=== PATIENT | female | born 1975 | race Two or more races ===

== ENCOUNTER 2022-12-04 15:03 | Inpatient (IN) | payer OTHER ==
[~2022-12-04] VITALS: Ht 165.1 cm; Wt 105.4 kg
[2022-12-04] MEDS ORDERED: PANTOPRAZOLE 40 MG/10 ML VIAL INJ IV ONE (15:30)
[2022-12-04] MEDS ORDERED: PROCHLORPERAZINE EDISYLATE 5 MG/ML 2ML VIAL IV ONE (15:30)
[2022-12-04] MEDS ORDERED: MORPHINE SULFATE 4 MG/ML SYR/VIAL IV ONE (15:30)
[2022-12-04 15:36] LABS: Urine Bacteria FEW /hpf (None Seen); Urine Blood 1+ /uL (Negative); Urine Mucus FEW (None Seen); Urine Specific Gravity 1.025 (1.001-1.035); Urine WBC 20 /hpf (0 - 5)
[2022-12-04 15:42] LABS: Basophils # (auto) 0.1 10 ^3/uL (0-0.2); Basophils % (auto) 0.7 % (0.0-2.0); Eosinophils # (auto) 0 10 ^3/uL (0-0.8); Hematocrit 44.7 % (36.0-46.0); Hemoglobin 14.9 g/dL (12.2-16.2); Lymphocytes # (auto) 1.6 10 ^3/uL (0.4-5.4); Lymphocytes % (auto) 9.2 % (10.0-50.0); Mean Corpuscular Hemoglobin 27.8 pg (28.0-32.0); Mean Corpuscular Hgb Conc. 33.3 g/dL (32.0-36.0); Mean Corpuscular Volume 83.6 fL (80.0-100.0); Monocytes # (auto) 1.4 10 ^3/uL (0-1.3); Monocytes % (auto) 8.2 % (0.0-12.0); Neutrophils # (auto) 13.9 10 ^3/uL (1.6-8.6); Neutrophils % (auto) 81.9 % (37.0-80.0); Nucleated Red Blood Cells % 0.1 %; Red Blood Cells 5.35 10^6/uL (4.0-5.20); Red Cell Distribution Width 15.4 % (11.8-14.3)
[2022-12-04 16:04] LABS: Potassium 3.7 mmol/L (3.5-5.1)
[2022-12-04 16:11] LABS: Albumin 3.8 g/dL (3.4-5.0); BUN/Creatinine Ratio 12.7 (10.0-20.0); Bilirubin, Total 0.7 mg/dL (0.2-1.0); Calcium 9.6 mg/dL (8.5-10.1); Total Protein 8.6 g/dL (6.4-8.2)
[2022-12-04] MEDS ORDERED: PIPERACILLIN-TAZOB 3.375GM 100 ML IV ONE (17:30)
[2022-12-04] MEDS ORDERED: MORPHINE SULFATE INJ 2 MG/ml SYRG IV PRN (22:45)
[2022-12-04] MEDS ORDERED: NITROGLYCERIN 0.4 MG SL TAB SL PRN (22:45)
[2022-12-04 23:45] VITALS: PULSE 110; RESP 16; O2SAT 95
[2022-12-05] MEDS: PIPERACILLIN-TAZOB 3.375GM 100 ML IV SCH ×4 (00:12→18:00)
[2022-12-05] MEDS: ONDANSETRON HCL 4 MG/2 ML VIAL IV PRN ×3 (00:12→17:04)
[2022-12-05] MEDS: SODIUM CHLORIDE 0.9% 1,000 ML IV SCH ×4 (00:13→23:45)
[2022-12-05] MEDS: MORPHINE SULFATE INJ 2 MG/ml SYRG IV PRN ×3 (00:21→17:09)
[2022-12-05 05:50] VITALS: PULSE 91; RESP 20; O2SAT 95
[2022-12-05 07:01] LABS: Basophils # (auto) 0 10 ^3/uL (0-0.2); Basophils % (auto) 0.2 % (0.0-2.0); Eosinophils # (auto) 0 10 ^3/uL (0-0.8); Hematocrit 40.7 % (36.0-46.0); Hemoglobin 13.7 g/dL (12.2-16.2); Lymphocytes # (auto) 1.3 10 ^3/uL (0.4-5.4); Lymphocytes % (auto) 6.9 % (10.0-50.0); Mean Corpuscular Hemoglobin 28.8 pg (28.0-32.0); Mean Corpuscular Hgb Conc. 33.8 g/dL (32.0-36.0); Mean Corpuscular Volume 85.3 fL (80.0-100.0); Monocytes # (auto) 2.2 10 ^3/uL (0-1.3); Monocytes % (auto) 11.3 % (0.0-12.0); Neutrophils # (auto) 15.9 10 ^3/uL (1.6-8.6); Neutrophils % (auto) 81.6 % (37.0-80.0); Nucleated Red Blood Cells % 0.1 %; Red Blood Cells 4.77 10^6/uL (4.0-5.20); Red Cell Distribution Width 15.5 % (11.8-14.3); White Blood Cell 19.4 10^3/uL (4.4-10.8)
[2022-12-05 07:12] LABS: Calcium 8.8 mg/dL (8.5-10.1); Potassium 4.4 mmol/L (3.5-5.1)
[2022-12-05 07:18] LABS: Albumin 3.4 g/dL (3.4-5.0); Bilirubin, Total 1.3 mg/dL (0.2-1.0)
[2022-12-05 08:55] VITALS: PULSE 97; RESP 16; O2SAT 96
[2022-12-05] MEDS: PANTOPRAZOLE 40 MG/10 ML VIAL INJ IV SCH (11:20)
[2022-12-05] MEDS: HEPARIN SODIUM (PORCINE) 5000 UNITS/ML 1ML VIAL SC SCH (23:38)
[2022-12-06] VITALS (8 sets, daily range): BP systolic 100–113; BP diastolic 63–71; PULSE 71–103; RESP 15–18; TEMP 98.2–100.2; O2SAT 90–98
[2022-12-06] MEDS: PIPERACILLIN-TAZOB 3.375GM 100 ML IV SCH ×3 (01:16→18:04)
[2022-12-06] MEDS: ACETAMINOPHEN 325 MG TAB PO PRN (01:24)
[2022-12-06] MEDS: ONDANSETRON HCL 4 MG/2 ML VIAL IV PRN (07:36)
[2022-12-06] MEDS: MORPHINE SULFATE INJ 2 MG/ml SYRG IV PRN ×2 (07:37→17:54)
[2022-12-06] MEDS: SODIUM CHLORIDE 0.9% 1,000 ML IV SCH ×2 (08:13→18:07)
[2022-12-06 09:12] LABS: INR 1.09 (0.9-1.15); Partial Thromboplastin Time 33.7 SEC (24.5-34.5)
[2022-12-06] MEDS: HEPARIN SODIUM (PORCINE) 5000 UNITS/ML 1ML VIAL SC SCH ×2 (10:07→21:25)
[2022-12-06] MEDS: PANTOPRAZOLE 40 MG/10 ML VIAL INJ IV SCH (10:07)
[2022-12-06] MEDS ORDERED: GLYCOPYRROLATE 0.2 MG/ML 1ML VIAL ONE ×2 (10:25→14:19)
[2022-12-06] MEDS ORDERED: ONDANSETRON HCL 4 MG/2 ML VIAL ONE (10:25)
[2022-12-06] MEDS ORDERED: KETOROLAC TROMETH 30 MG/ML 1ML VIAL ONE (10:25)
[2022-12-06] MEDS ORDERED: LIDOCAINE 2% (LOCAL ANESTH.) PF 5ml SDV ONE (10:25)
[2022-12-06] MEDS ORDERED: DexAMETHasone SOD PHOS 10MG/1ML VIAL INJ ONE (10:25)
[2022-12-06] MEDS ORDERED: BUPIVACAINE 0.25% INJ 50ML VIAL ONE (11:56)
[2022-12-06] MEDS ORDERED: LIDOCAINE W/ EPINEPHRINE 2% INJ 20ML VIAL ONE (11:56)
[2022-12-06] MEDS ORDERED: fentaNYL CITRATE 100 MCG/2 ML VL ONE (12:39)
[2022-12-06] MEDS ORDERED: MIDAZOLAM HCL 2MG/2ML 2ml VIAL (1mg/ml) ONE (12:39)
[2022-12-06] MEDS ORDERED: ROCURONIUM 10MG/ML 10ML VIAL IV ONE (13:53)
[2022-12-06] MEDS ORDERED: PROPOFOL 10 MG/ML 20 ML IV ONE (13:53)
[2022-12-06] MEDS ORDERED: ONDANSETRON HCL 4 MG/2 ML VIAL IV PRN (14:00)
[2022-12-06] MEDS ORDERED: HYDROmorphone HCL 2 MG/ML VL/or syr IV PRN ×2 (14:00)
[2022-12-06] MEDS ORDERED: NEOSTIGMINE 1 MG/ML INJ (10mg/10ML VIAL) ONE (14:19)
[2022-12-06] MEDS ORDERED: FAMO-12 PO (17:10)
[2022-12-06] MEDS ORDERED: CHOL1CAP21 PO (17:10)
[2022-12-07] VITALS (7 sets, daily range): BP systolic 101–133; BP diastolic 61–83; PULSE 80–96; RESP 17–20; TEMP 98.5–99.1; O2SAT 90–98
[2022-12-07] MEDS: PIPERACILLIN-TAZOB 3.375GM 100 ML IV SCH ×3 (00:57→18:00)
[2022-12-07] MEDS: MORPHINE SULFATE INJ 2 MG/ml SYRG IV PRN ×4 (02:04→20:26)
[2022-12-07] MEDS: ONDANSETRON HCL 4 MG/2 ML VIAL IV PRN ×4 (02:13→20:25)
[2022-12-07 05:30] LABS: Basophils # (auto) 0.1 10 ^3/uL (0-0.2); Basophils % (auto) 0.6 % (0.0-2.0); Eosinophils # (auto) 0.1 10 ^3/uL (0-0.8); Eosinophils % (auto) 0.5 % (0.0-7.0); Hematocrit 32.6 % (36.0-46.0); Lymphocytes # (auto) 1.8 10 ^3/uL (0.4-5.4); Lymphocytes % (auto) 16.7 % (10.0-50.0); Mean Corpuscular Hemoglobin 28.4 pg (28.0-32.0); Mean Corpuscular Hgb Conc. 33.6 g/dL (32.0-36.0); Mean Corpuscular Volume 84.5 fL (80.0-100.0); Monocytes # (auto) 0.9 10 ^3/uL (0-1.3); Monocytes % (auto) 8.7 % (0.0-12.0); Neutrophils # (auto) 7.9 10 ^3/uL (1.6-8.6); Neutrophils % (auto) 73.5 % (37.0-80.0); Nucleated Red Blood Cells % 0.1 %; Red Blood Cells 3.86 10^6/uL (4.0-5.20); Red Cell Distribution Width 15.5 % (11.8-14.3); White Blood Cell 10.8 10^3/uL (4.4-10.8)
[2022-12-07] MEDS: SODIUM CHLORIDE 0.9% 1,000 ML IV SCH ×2 (09:05→18:00)
[2022-12-07 09:16] LABS: BUN/Creatinine Ratio 8.3 (10.0-20.0); Calcium 7.8 mg/dL (8.5-10.1); Potassium 3.7 mmol/L (3.5-5.1)
[2022-12-07] MEDS: PSYLLIUM PWD 5.8GM PKG PO SCH ×2 (09:22→20:54)
[2022-12-07] MEDS: PANTOPRAZOLE 40 MG/10 ML VIAL INJ IV SCH (09:22)
[2022-12-07] MEDS: HEPARIN SODIUM (PORCINE) 5000 UNITS/ML 1ML VIAL SC SCH ×2 (10:00→20:54)
[2022-12-08] MEDS: SODIUM CHLORIDE 0.9% 1,000 ML IV SCH ×3 (03:57→18:40)
[2022-12-08] MEDS: PIPERACILLIN-TAZOB 3.375GM 100 ML IV SCH ×3 (03:57→17:42)
[2022-12-08 05:00] VITALS: BP 116/74; PULSE 93; RESP 17; TEMP 98.9; O2SAT 95
[2022-12-08 07:30] VITALS: PULSE 87; RESP 18; O2SAT 97
[2022-12-08] MEDS: ONDANSETRON HCL 4 MG/2 ML VIAL IV PRN ×2 (08:16→21:17)
[2022-12-08] MEDS: MORPHINE SULFATE INJ 2 MG/ml SYRG IV PRN ×2 (08:17→21:17)
[2022-12-08 08:36] VITALS: BP 112/66; PULSE 81; RESP 17; TEMP 98.8; O2SAT 96
[2022-12-08] MEDS: PSYLLIUM PWD 5.8GM PKG PO SCH ×2 (09:42→21:17)
[2022-12-08] MEDS: PANTOPRAZOLE 40 MG/10 ML VIAL INJ IV SCH (09:42)
[2022-12-08] MEDS ORDERED: POLYETHYLENE GLYCOL 17 GM PWDR PO ONE (09:45)
[2022-12-08] MEDS: HEPARIN SODIUM (PORCINE) 5000 UNITS/ML 1ML VIAL SC SCH ×2 (09:52→21:18)
[2022-12-08] MEDS: DOCUSATE SOD 100 MG CAP PO SCH ×2 (10:00→21:17)
[2022-12-08 12:50] VITALS: BP 107/72; PULSE 88; RESP 18; TEMP 99; O2SAT 97
[2022-12-08 17:05] VITALS: BP 108/60; PULSE 85; RESP 18; TEMP 98.2; O2SAT 97
[2022-12-08 22:00] VITALS: BP 112/78; PULSE 93; RESP 17; TEMP 98.6; O2SAT 94
[2022-12-09] VITALS (7 sets, daily range): BP systolic 101–127; BP diastolic 64–81; PULSE 80–103; RESP 16–18; TEMP 98.3–98.6; O2SAT 93–98
[2022-12-09] MEDS: PIPERACILLIN-TAZOB 3.375GM 100 ML IV SCH ×3 (01:55→18:02)
[2022-12-09] MEDS: SODIUM CHLORIDE 0.9% 1,000 ML IV SCH ×3 (02:33→19:25)
[2022-12-09] MEDS: PANTOPRAZOLE 40 MG/10 ML VIAL INJ IV SCH (10:14)
[2022-12-09] MEDS: PSYLLIUM PWD 5.8GM PKG PO SCH ×2 (10:14→21:30)
[2022-12-09] MEDS: DOCUSATE SOD 100 MG CAP PO SCH ×2 (10:14→21:31)
[2022-12-09] MEDS: HEPARIN SODIUM (PORCINE) 5000 UNITS/ML 1ML VIAL SC SCH ×2 (10:20→21:35)
[2022-12-09 12:28] LABS: Basophils # (auto) 0.1 10 ^3/uL (0-0.2); Basophils % (auto) 0.7 % (0.0-2.0); Eosinophils # (auto) 0.2 10 ^3/uL (0-0.8); Hematocrit 34.2 % (36.0-46.0); Hemoglobin 11.4 g/dL (12.2-16.2); Lymphocytes # (auto) 1.3 10 ^3/uL (0.4-5.4); Lymphocytes % (auto) 15.6 % (10.0-50.0); Mean Corpuscular Hemoglobin 27.8 pg (28.0-32.0); Mean Corpuscular Hgb Conc. 33.3 g/dL (32.0-36.0); Mean Corpuscular Volume 83.6 fL (80.0-100.0); Monocytes # (auto) 0.7 10 ^3/uL (0-1.3); Monocytes % (auto) 9.2 % (0.0-12.0); Neutrophils # (auto) 5.8 10 ^3/uL (1.6-8.6); Neutrophils % (auto) 72.5 % (37.0-80.0); Nucleated Red Blood Cells % 0.1 %; Red Blood Cells 4.08 10^6/uL (4.0-5.20); Red Cell Distribution Width 15.3 % (11.8-14.3)
[2022-12-09 12:46] LABS: Albumin 2.4 g/dL (3.4-5.0); Calcium 8.7 mg/dL (8.5-10.1); Magnesium 2.6 mg/dL (1.6-2.6); Potassium 3.9 mmol/L (3.5-5.1)
[2022-12-09 12:53] LABS: BUN/Creatinine Ratio 4.3 (10.0-20.0); Bilirubin, Total 0.5 mg/dL (0.2-1.0); Phosphorus 2.9 mg/dL (2.5-4.90)
[2022-12-09] MEDS: ACETAMINOPHEN 325 MG TAB PO PRN (19:55)
[2022-12-10] MEDS: MORPHINE SULFATE INJ 2 MG/ml SYRG IV PRN ×2 (00:28→07:22)
[2022-12-10] MEDS: PIPERACILLIN-TAZOB 3.375GM 100 ML IV SCH ×3 (00:33→17:32)
[2022-12-10 05:00] VITALS: BP 106/63; PULSE 90; RESP 17; TEMP 98.4; O2SAT 94
[2022-12-10] MEDS: SODIUM CHLORIDE 0.9% 1,000 ML IV SCH ×3 (06:17→20:25)
[2022-12-10 08:00] VITALS: PULSE 88; RESP 18
[2022-12-10 09:18] VITALS: BP 114/71; PULSE 88; RESP 18; TEMP 98; O2SAT 97
[2022-12-10] MEDS: PANTOPRAZOLE 40 MG/10 ML VIAL INJ IV SCH (10:24)
[2022-12-10] MEDS: PSYLLIUM PWD 5.8GM PKG PO SCH ×2 (10:24→21:51)
[2022-12-10] MEDS: DOCUSATE SOD 100 MG CAP PO SCH ×2 (10:24→21:51)
[2022-12-10] MEDS: HEPARIN SODIUM (PORCINE) 5000 UNITS/ML 1ML VIAL SC SCH ×2 (10:29→21:50)
[2022-12-10 15:11] VITALS: BP 123/79; PULSE 95; RESP 16; TEMP 97.3; O2SAT 95
[2022-12-10 20:00] VITALS: PULSE 84; RESP 18
[2022-12-10 22:00] VITALS: BP 116/70; PULSE 95; RESP 18; TEMP 98.5; O2SAT 96
[2022-12-10] MEDS: ACETAMINOPHEN 325 MG TAB PO PRN (22:33)
[2022-12-11] MEDS: PIPERACILLIN-TAZOB 3.375GM 100 ML IV SCH ×3 (01:42→17:15)
[2022-12-11] MEDS: SODIUM CHLORIDE 0.9% 1,000 ML IV SCH ×2 (04:45→13:05)
[2022-12-11 05:00] VITALS: BP 107/66; PULSE 85; RESP 18; TEMP 98.3; O2SAT 94
[2022-12-11 08:00] VITALS: PULSE 78; RESP 20; O2SAT 94
[2022-12-11 09:00] VITALS: BP 116/83; PULSE 78; RESP 20; TEMP 98.7; O2SAT 94
[2022-12-11] MEDS: PSYLLIUM PWD 5.8GM PKG PO SCH (09:37)
[2022-12-11] MEDS: PANTOPRAZOLE 40 MG/10 ML VIAL INJ IV SCH (09:37)
[2022-12-11] MEDS: DOCUSATE SOD 100 MG CAP PO SCH (09:37)
[2022-12-11] MEDS: HEPARIN SODIUM (PORCINE) 5000 UNITS/ML 1ML VIAL SC SCH (09:38)
[2022-12-11 12:34] VITALS: BP 113/90; PULSE 84; RESP 20; TEMP 98.1; O2SAT 93
[2022-12-11] MEDS: ACETAMINOPHEN 325 MG TAB PO PRN (17:20)
[2022-12-11] MEDS ORDERED: ACETAMINOPHEN 325 MG TAB PO PRN (17:30)
[2022-12-11 20:00] VITALS: PULSE 86; RESP 18
== END 2022-12-11 20:45 | disposition home or self-care (01) | DRG 710 ==
LOC: ER 15:03 → TELE 22:39 → TELE-EAST 12-06 16:49 → EAST 12-08 10:55
PROVIDERS: ADMIT Nurse Practitioner; ATTEND Nurse Practitioner
PROC: 0FT44ZZ Resection of Gallbladder, Percutaneous Endoscopic Approach (ICD-10-PCS; principal; 2022-12-06 12:34)
DX: A41.9 Sepsis, unspecified organism (principal); J96.01 Acute respiratory failure with hypoxia; K80.12 Calculus of gallbladder with acute and chronic cholecystitis without obstruction; E66.01 Morbid (severe) obesity due to excess calories; J98.11 Atelectasis; Z68.41 Body mass index [BMI] 40.0-44.9, adult; K21.9 Gastro-esophageal reflux disease without esophagitis; N30.00 Acute cystitis without hematuria; F17.210 Nicotine dependence, cigarettes, uncomplicated; K59.00 Constipation, unspecified; Z80.3 Family history of malignant neoplasm of breast; Z80.8 Family history of malignant neoplasm of other organs or systems; Z82.49 Family history of ischemic heart disease and other diseases of the circulatory system; Z83.3 Family history of diabetes mellitus; Z83.511 Family history of glaucoma; Z90.49 Acquired absence of other specified parts of digestive tract; Z98.891 History of uterine scar from previous surgery; Z88.1 Allergy status to other antibiotic agents; Z91.040 Latex allergy status; Z88.5 Allergy status to narcotic agent; Z91.018 Allergy to other foods
CPT/HCPCS: 36415; 71045; 76705; 80048; 80053; 81001; 82247; 83690; 83735; 84100; 84702; 85025; 85610; 85730; 86850; 86900; 86901; 87070; 87075; 87086; 87205; 97110; 97116; 97163; 97530; C9113; G0378; J1100; J1885; J2001; J2250; J2405; J2543; J2704; J3490